=== PATIENT | male | born 1970 | race Caucasian/White ===

== ENCOUNTER 2020-08-08 13:27 | Inpatient (IN) | payer OTHER ==
[~2020-08-08] VITALS: Ht 177.8 cm; Wt 147.8 kg
[2020-08-08 17:05] LABS: BASO # 0.1 x10^3/uL (0.0-0.2); BASO % 1 % (0-3); EOS # 0.1 x10^3/uL (0.0-0.7); EOS % 2 % (0-3); HEMATOCRIT 47.2 % (39.0-53.0); LYMPH # 1.7 x10^3/uL (1.0-4.8); LYMPH % 19 % (24-48); MEAN CORPUSCULAR HEMOGLOBIN 28 pg (25-35); MEAN CORPUSCULAR HGB CONC 34 g/dL (31-37); MEAN CORPUSCULAR VOLUME 83 fL (79-100); MONO # 0.9 x10^3/uL (0.0-1.1); MONO % 10 % (0-9); NEUT # 6.2 x10^3/uL (1.8-7.7); NEUT % 68 % (31-73); PLATELET COUNT 196 x10^3/uL (140-400); RED CELL DISTRIBUTION WIDTH 13.4 % (11.5-14.5); WHITE BLOOD COUNT 9.1 x10^3/uL (4.0-11.0)
[2020-08-08] MEDS ORDERED: CONTRAST GIVEN. MC PRN (17:45)
[2020-08-08] MEDS ORDERED: IOHEXOL 350 MG/ML 100 ML VIAL. IV ONE (17:45)
[2020-08-08 17:50] LABS: CALCIUM 9.6 mg/dL (8.5-10.1); CREATININE 1.5 mg/dL (0.7-1.3); GFR 49.3; POTASSIUM 4.3 mmol/L (3.5-5.1)
[2020-08-08 17:56] LABS: ALBUMIN 3.5 g/dL (3.4-5.0); ALBUMIN/GLOBULIN RATIO 0.8 (1.0-1.7); TOTAL BILIRUBIN 0.5 mg/dL (0.2-1.0); TOTAL PROTEIN 7.9 g/dL (6.4-8.2)
[2020-08-08 18:12] LABS: PROTHROMBIN TIME PATIENT 13.5 SEC (11.7-14.0)
--- NOTE | 2020-08-08 18:23 | PHYS DOC ---
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 He states he had an outpatient venous Doppler done which was positive for DVT and was sent to the ED. Denies any chest pain or shortness of breath. Review of Systems: Review of Systems: Constitutional: Denies fever or chills. [] Eyes: Denies change in visual acuity. [] HENT: Denies nasal congestion or sore throat. [] Respiratory: Denies cough or shortness of breath. [] Cardiovascular: Denies chest pain or edema. [] GI: Denies abdominal pain, nausea, vomiting, bloody stools or diarrhea. [] : Denies dysuria. [] Musculoskeletal: Reports left lower extremity. Positive for DVT. Denies back pain or joint pain. [] Integument: Denies rash. [] Neurologic: Denies headache, focal weakness or sensory changes. [] Psychiatric: Denies depression or anxiety. [] Heart Score: Risk Factors: Risk Factors: DM, Current or recent (<one month) smoker, HTN, HLP, family history of CAD, obesity. Risk Scores: Score 0 - 3: 2.5% MACE over next 6 weeks - Discharge Home Score 4 - 6: 20.3% MACE over next 6 weeks - Admit for Clinical Observation Score 7 - 10: 72.7% MACE over next 6 weeks - Early Invasive Strategies Current Medications: Current Medications Medications (Trade) Dose Ordered Sig/Corie Start Time Stop Time Status Last Admin Dose Admin Info (CONTRAST GIVEN -- Rx MONITORING) 1 each PRN DAILY PRN 08/08/20 17:45 08/10/20 17:44 Iohexol (Omnipaque 350 Mg/ml) 100 ml 1X ONCE 08/08/20 17:45 08/08/20 17:46 DC 08/08/20 18:12 100 ML Allergies: Allergies: Allergies Coded Allergies Type Severity Reaction Last Updated Verified No Known Drug Allergies 08/08/20 No Physical Exam: PE: Constitutional: Well developed, well nourished, no acute distress, non-toxic appearance. [] HENT: Normocephalic, atraumatic, bilateral external ears normal, oropharynx moist, no oral exudates, nose normal. [] Eyes: PERRLA, EOMI, conjunctiva normal, no discharge. [] Neck: Normal range of motion, no tenderness, supple, no stridor. [] Cardiovascular:Heart rate regular rhythm, no murmur [] Lungs & Thorax: Bilateral breath sounds clear to auscultation [] Abdomen: Bowel sounds normal, soft, no tenderness, no masses, no pulsatile masses. [] Skin: Warm, dry, no erythema, no rash. [] Back: No tenderness, no CVA tenderness. [] Extremities: No tenderness, no cyanosis, no clubbing, ROM intact, no edema. Negative Homans' sign bilaterally, varicose veins noted bilaterally. Neurologic: Alert and oriented X 3, normal motor function, normal sensory function, no focal deficits noted. [] Psychologic: Affect normal, judgement normal, mood normal. [] Current Patient Data: Labs: Laboratory Tests Test 08/08/20 16:42 White Blood Count 9.1 x10^3/uL (4.0-11.0) Red Blood Count 5.70 x10^6/uL (4.30-5.70) Hemoglobin 16.0 g/dL (13.0-17.5) Hematocrit 47.2 % (39.0-53.0) Mean Corpuscular Volume 83 fL (79-100) Mean Corpuscular Hemoglobin 28 pg (25-35) Mean Corpuscular Hemoglobin Concent 34 g/dL (31-37) Red Cell Distribution Width 13.4 % (11.5-14.5) Platelet Count 196 x10^3/uL (140-400) Neutrophils (%) (Auto) 68 % (31-73) Lymphocytes (%) (Auto) 19 % (24-48) L Monocytes (%) (Auto) 10 % (0-9) H Eosinophils (%) (Auto) 2 % (0-3) Basophils (%) (Auto) 1 % (0-3) Neutrophils # (Auto) 6.2 x10^3/uL (1.8-7.7) Lymphocytes # (Auto) 1.7 x10^3/uL (1.0-4.8) Monocytes # (Auto) 0.9 x10^3/uL (0.0-1.1) Eosinophils # (Auto) 0.1 x10^3/uL (0.0-0.7) Basophils # (Auto) 0.1 x10^3/uL (0.0-0.2) Sodium Level 132 mmol/L (136-145) L Potassium Level 4.3 mmol/L (3.5-5.1) Chloride Level 92 mmol/L (98-107) L Carbon Dioxide Level 32 mmol/L (21-32) Anion Gap 8 (6-14) Blood Urea Nitrogen 24 mg/dL (8-26) Creatinine 1.5 mg/dL (0.7-1.3) H Estimated GFR (Cockcroft-Gault) 49.3 BUN/Creatinine Ratio 16 (6-20) Glucose Level 273 mg/dL (70-99) H Calcium Level 9.6 mg/dL (8.5-10.1) Total Bilirubin 0.5 mg/dL (0.2-1.0) Aspartate Amino Transferase (AST) 17 U/L (15-37) Alanine Aminotransferase (ALT) 26 U/L (16-63) Alkaline Phosphatase 120 U/L (46-116) H Total Protein 7.9 g/dL (6.4-8.2) Albumin 3.5 g/dL (3.4-5.0) Albumin/Globulin Ratio 0.8 (1.0-1.7) L Laboratory Tests 08/08/20 16:42 Laboratory Tests 08/08/20 16:42 Vital Signs: Vital Signs Date Time Temp Pulse Resp B/P (MAP) Pulse Ox O2 Delivery O2 Flow Rate FiO2 08/08/20 16:31 90 16 132/82 (99) 99 Room Air 08/08/20 14:40 98.0 98.0 EKG: EKG: [] Radiology/Procedures: Radiology/Procedures: []PROCEDURE: CT ANGIOGRAPHY CHEST CTA Chest with contrast: Clinical History: Reason: r/o PE. + LLE DVT / Spl. Instructions: IV OMNI 350 80 MLS / History: Shortness of breath. Axial helical images of the chest were obtained after the administration of 80 cc of IV Omni 350 and timed appropriately for a pulmonary arterial study. Conventional axial reconstruction was performed in addition to coronal, sagittal and bilateral oblique MIP (maximum intensity projection). This study was ordered to detect possible pulmonary embolism. There is a large filling defect in the distal right pulmonary artery interdigitating into all of the segmental and a few subsegmental branches. There is no solid saddle embolism. There are a few subsegmental pulmonary emboli seen on the left. The lungs and pleural margins are clear. There is no mediastinal or hilar lymphadenopathy. The thoracic aorta appears normal. Impression: Large right-sided pulmonary embolism and small left-sided pulmonary embolism. End impression PQRS Compliance Statement: One or more of the following individualized dose reduction techniques were utilized for this examination: 1. Automated exposure control 2. Adjustment of the mA and/or kV according to patient size 3. Use of iterative reconstruction technique Electronically signed by: Mary Jo Avalos III, MD (08/08/2020 6:20 PM) [facility] DICTATED and SIGNED BY: MARY JO AVALOS III, MD DATE: 08/08/201819 Course & Med Decision Making: Course & Med Decision Making Pertinent Labs and Imaging studies reviewed. (See chart for details) This is a 50-year-old male patient presenting to the ED today to be evaluated af ter being diagnosed with a DVT as an outpatient. Patient has had left lower extremity pain for 1 week Labs are negative for anything acute. CT angio of the chest was noted for bilateral PEs O2 sats 98% on room air Spoke with Dr. Porter who accepted patient for admission, he requested we give patient 15 mg of Xarelto. He also requested pulmonary consult which was done. Patient was admitted in stable condition Dragon Disclaimer: Dragon Disclaimer: This electronic medical record was generated, in whole or in part, using a voice recognition dictation system. Departure Departure Impression: Primary Impression: Bilateral pulmonary embolism Additional Impression: Left leg DVT Qualified Codes: I82.492 - Acute embolism and thrombosis of other specified deep vein of left lower extremity Disposition: ADMITTED INPT THIS HOSP Condition: STABLE Referrals: RAY PORTER MD (PCP) MAYLIN MORALES APRN Aug 08, 2020 18:23
[2020-08-08] MEDS ORDERED: RIVAROXABAN 15 MG TABLET. PO STA (18:51)
[2020-08-08] MEDS ORDERED: MORPHINE SULFATE 4 MG/ML VIAL. IV PRN (19:00)
[2020-08-08] MEDS ORDERED: ONDANSETRON PF 4 MG/2 ML VIAL. IV PRN (19:00)
[2020-08-08] MEDS ORDERED: ACETAMINOPHEN 325 MG TABLET. PO PRN (19:00)
[2020-08-08 23:39] VITALS: BP 126/78
[2020-08-09] MEDS ORDERED: METF10007 PO (00:08)
[2020-08-09] MEDS ORDERED: INSU100C4 SQ ×3 (00:08)
[2020-08-09] MEDS ORDERED: MELO7.5T29 PO (00:08)
[2020-08-09] MEDS ORDERED: LISI1TAB37 PO (00:08)
[2020-08-09] MEDS ORDERED: ATOR20TA58 PO (00:08)
[2020-08-09] MEDS ORDERED: INSU100V37 SQ (00:08)
[2020-08-09] MEDS ORDERED: EMPA25TA PO (00:08)
--- NOTE | 2020-08-09 02:30 | NUR ---
The patient, ELIZA PORTER, 50 y/o, M admitted by HUBER PORTER MD, was given written information regarding hospital policies, unit procedures and contact persons. Valuables were checked and patient has wedding ring as well as a watch. RN left message for Dr Huber Porter regarding admission.
[2020-08-09 03:05] VITALS: BP 93/50
[2020-08-09 05:01] LABS: BASO # 0.1 x10^3/uL (0.0-0.2); BASO % 1 % (0-3); EOS # 0.2 x10^3/uL (0.0-0.7); EOS % 3 % (0-3); HEMATOCRIT 44.5 % (39.0-53.0); HEMOGLOBIN 15.1 g/dL (13.0-17.5); LYMPH % 22 % (24-48); MEAN CORPUSCULAR HEMOGLOBIN 28 pg (25-35); MEAN CORPUSCULAR HGB CONC 34 g/dL (31-37); MEAN CORPUSCULAR VOLUME 84 fL (79-100); MONO # 0.9 x10^3/uL (0.0-1.1); MONO % 10 % (0-9); NEUT % 65 % (31-73); PLATELET COUNT 186 x10^3/uL (140-400); RED CELL DISTRIBUTION WIDTH 13.4 % (11.5-14.5); WHITE BLOOD COUNT 9.2 x10^3/uL (4.0-11.0)
[2020-08-09 05:29] LABS: ALBUMIN 3.1 g/dL (3.4-5.0); ALBUMIN/GLOBULIN RATIO 0.8 (1.0-1.7); CALCIUM 9.5 mg/dL (8.5-10.1); CREATININE 1.4 mg/dL (0.7-1.3); GFR 53.4; TOTAL BILIRUBIN 0.8 mg/dL (0.2-1.0); TOTAL PROTEIN 7.2 g/dL (6.4-8.2)
[2020-08-09 07:00] VITALS: BP 107/64
[2020-08-09] MEDS ORDERED: INSULIN GLARGINE SYRINGE. SQ SCH (08:00)
--- NOTE | 2020-08-09 08:34 | PDOC ---
Provider Note Date of Service: DATE: 08/09/20 TIME: 08:33 Provider Note dictated Justifications for Admission Other Justification RAY PORTER MD Aug 09, 2020 08:34
[2020-08-09] MEDS ORDERED: hydroCHLOROthiazide 12.5 MG CAPSULE PO SCH (09:00)
[2020-08-09] MEDS ORDERED: INSULIN LISPRO 300 UNITS/3 ML VIAL. SQ SCH ×3 (09:00→17:00)
[2020-08-09] MEDS ORDERED: RIVAROXABAN 15 MG TABLET. PO SCH (09:00)
[2020-08-09] MEDS ORDERED: metFORMIN 500 MG TABLET PO SCH (09:00)
[2020-08-09] MEDS ORDERED: LISINOPRIL 20 MG TABLET PO SCH (09:00)
--- NOTE | 2020-08-09 09:07 | HP ---
ADMIT DATE: CHIEF COMPLAINT: Painful left thigh. HISTORY OF PRESENT ILLNESS: A 50-year-old white male known insulin-dependent diabetic with hypertension was seen in the office 4 or 5 days ago with some left lower thigh pain. This progressed to around and behind his knee and outpatient Doppler showed evidence of DVT in the left leg. He was sent to the ER for further evaluation and despite having no chest pain or shortness of breath. CTA revealed bilateral pulmonary emboli, right side greater than left. He was admitted on Xarelto and is feeling better at this time. He can recall no trauma to the leg or any recent prolonged immobilization or risk factors for DVT. He has never had known thrombotic event. PAST MEDICAL HISTORY: Diabetes. MEDICATIONS: Meds managed by his white shoe examiner. He also takes atorvastatin and lisinopril. ALLERGIES: No known allergies. A1c most recently was above 8. 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 FAMILY HISTORY: Unremarkable. REVIEW OF SYSTEMS: Unremarkable. PHYSICAL EXAMINATION: ENT: All within normal limits. NECK: No masses, nodes or bruits. LUNGS: Clear, without tachypnea or rubs. CARDIOVASCULAR: Regular rate. No tachycardia or murmur. ABDOMEN: Soft, benign and nontender. EXTREMITIES: Mildly tender to palpation on the left medial thigh with fullness with no masses or fluctuance present. There is no edema of the left leg and bilateral pedal pulses are unremarkable. NEUROLOGIC: Physiologic and nonfocal. ASSESSMENT: Deep venous thrombosis of the left thigh with bilateral pulmonary emboli that is asymptomatic. PLAN: Continue Xarelto while we evaluate his outpatient drug availability. RAY PORTER MD DR: DARRION/bárbara JOB#: [id number] / [id number]
--- NOTE | 2020-08-09 09:48 | NUR ---
Non administered AM dose of Metformin d\t patient having CT scan with contrast on 08/08/2020. Hold Metformin for 48 hours
[2020-08-09 11:00] VITALS: BP 108/64
--- NOTE | 2020-08-09 11:30 | NUR ---
SS following for discharge planning. SS reviewed pt chart and discussed with pt RN. Pt is currently on room air. SS contacted pt pharmacy to check on jaeger of Xarelto. Approximate cost is $90 per month with insurance. SS assisted in enrolling pt in patient assistance program for Xarelto. Information provided to pt RN. Discharge plan is to home when medically ready. SS will continue to follow for discharge planning.
[2020-08-09] MEDS ORDERED: RIVA15TA PO (15:11)
--- NOTE | 2020-08-09 15:42 | NUR ---
Discharge Note: ELIZA PORTER Discharge instructions and discharge home medications reviewed with Home Care Nurse/Telephone and a copy given. All questions have been answered and understanding verbalized. The following instructions and handouts were given: discharge medication instructions , follow up instructions, Xarelto education Discontinued lines and drains: peripheral IV discontinued, dressing clean, dry and intact. Patient discharged to home with spouse via ambulation
--- NOTE | 2020-08-09 15:49 | PDOC ---
PULMONARY PROGRESS NOTES DATE: 08/09/20 TIME: 15:48 Vitals Vital Signs Date Time Temp Pulse Resp B/P (MAP) Pulse Ox O2 Delivery O2 Flow Rate FiO2 08/09/20 11:00 98.0 78 20 108/64 (79) 97 Nasal Cannula 2.0 98.0 Labs Laboratory Tests Test 08/08/20 16:42 08/08/20 17:35 08/09/20 04:05 08/09/20 07:25 White Blood Count 9.1 x10^3/uL (4.0-11.0) 9.2 x10^3/uL (4.0-11.0) Red Blood Count 5.70 x10^6/uL (4.30-5.70) 5.30 x10^6/uL (4.30-5.70) Hemoglobin 16.0 g/dL (13.0-17.5) 15.1 g/dL (13.0-17.5) Hematocrit 47.2 % (39.0-53.0) 44.5 % (39.0-53.0) Mean Corpuscular Volume 83 fL (79-100) 84 fL (79-100) Mean Corpuscular Hemoglobin 28 pg (25-35) 28 pg (25-35) Mean Corpuscular Hemoglobin Concent 34 g/dL (31-37) 34 g/dL (31-37) Red Cell Distribution Width 13.4 % (11.5-14.5) 13.4 % (11.5-14.5) Platelet Count 196 x10^3/uL (140-400) 186 x10^3/uL (140-400) Neutrophils (%) (Auto) 68 % (31-73) 65 % (31-73) Lymphocytes (%) (Auto) 19 % (24-48) 22 % (24-48) Monocytes (%) (Auto) 10 % (0-9) 10 % (0-9) Eosinophils (%) (Auto) 2 % (0-3) 3 % (0-3) Basophils (%) (Auto) 1 % (0-3) 1 % (0-3) Neutrophils # (Auto) 6.2 x10^3/uL (1.8-7.7) 6.0 x10^3/uL (1.8-7.7) Lymphocytes # (Auto) 1.7 x10^3/uL (1.0-4.8) 2.0 x10^3/uL (1.0-4.8) Monocytes # (Auto) 0.9 x10^3/uL (0.0-1.1) 0.9 x10^3/uL (0.0-1.1) Eosinophils # (Auto) 0.1 x10^3/uL (0.0-0.7) 0.2 x10^3/uL (0.0-0.7) Basophils # (Auto) 0.1 x10^3/uL (0.0-0.2) 0.1 x10^3/uL (0.0-0.2) Sodium Level 132 mmol/L (136-145) 136 mmol/L (136-145) Potassium Level 4.3 mmol/L (3.5-5.1) 4.0 mmol/L (3.5-5.1) Chloride Level 92 mmol/L (98-107) 97 mmol/L (98-107) Carbon Dioxide Level 32 mmol/L (21-32) 29 mmol/L (21-32) Anion Gap 8 (6-14) 10 (6-14) Blood Urea Nitrogen 24 mg/dL (8-26) 23 mg/dL (8-26) Creatinine 1.5 mg/dL (0.7-1.3) 1.4 mg/dL (0.7-1.3) Estimated GFR (Cockcroft-Gault) 49.3 53.4 BUN/Creatinine Ratio 16 (6-20) 16 (6-20) Glucose Level 273 mg/dL (70-99) 158 mg/dL (70-99) Calcium Level 9.6 mg/dL (8.5-10.1) 9.5 mg/dL (8.5-10.1) Total Bilirubin 0.5 mg/dL (0.2-1.0) 0.8 mg/dL (0.2-1.0) Aspartate Amino Transf (AST/SGOT) 17 U/L (15-37) 16 U/L (15-37) Alanine Aminotransferase (ALT/SGPT) 26 U/L (16-63) 25 U/L (16-63) Alkaline Phosphatase 120 U/L (46-116) 98 U/L (46-116) Total Protein 7.9 g/dL (6.4-8.2) 7.2 g/dL (6.4-8.2) Albumin 3.5 g/dL (3.4-5.0) 3.1 g/dL (3.4-5.0) Albumin/Globulin Ratio 0.8 (1.0-1.7) 0.8 (1.0-1.7) Prothrombin Time 13.5 SEC (11.7-14.0) Prothromb Time International Ratio 1.1 (0.8-1.1) Activated Partial Thromboplast Time 24 SEC (24-38) Glucose (Fingerstick) 184 mg/dL (70-99) Laboratory Tests Test 08/08/20 16:42 08/08/20 17:35 08/09/20 04:05 08/09/20 07:25 White Blood Count 9.1 x10^3/uL (4.0-11.0) 9.2 x10^3/uL (4.0-11.0) Red Blood Count 5.70 x10^6/uL (4.30-5.70) 5.30 x10^6/uL (4.30-5.70) Hemoglobin 16.0 g/dL (13.0-17.5) 15.1 g/dL (13.0-17.5) Hematocrit 47.2 % (39.0-53.0) 44.5 % (39.0-53.0) Mean Corpuscular Volume 83 fL (79-100) 84 fL (79-100) Mean Corpuscular Hemoglobin 28 pg (25-35) 28 pg (25-35) Mean Corpuscular Hemoglobin Concent 34 g/dL (31-37) 34 g/dL (31-37) Red Cell Distribution Width 13.4 % (11.5-14.5) 13.4 % (11.5-14.5) Platelet Count 196 x10^3/uL (140-400) 186 x10^3/uL (140-400) Neutrophils (%) (Auto) 68 % (31-73) 65 % (31-73) Lymphocytes (%) (Auto) 19 % (24-48) 22 % (24-48) Monocytes (%) (Auto) 10 % (0-9) 10 % (0-9) Eosinophils (%) (Auto) 2 % (0-3) 3 % (0-3) Basophils (%) (Auto) 1 % (0-3) 1 % (0-3) Neutrophils # (Auto) 6.2 x10^3/uL (1.8-7.7) 6.0 x10^3/uL (1.8-7.7) Lymphocytes # (Auto) 1.7 x10^3/uL (1.0-4.8) 2.0 x10^3/uL (1.0-4.8) Monocytes # (Auto) 0.9 x10^3/uL (0.0-1.1) 0.9 x10^3/uL (0.0-1.1) Eosinophils # (Auto) 0.1 x10^3/uL (0.0-0.7) 0.2 x10^3/uL (0.0-0.7) Basophils # (Auto) 0.1 x10^3/uL (0.0-0.2) 0.1 x10^3/uL (0.0-0.2) Sodium Level 132 mmol/L (136-145) 136 mmol/L (136-145) Potassium Level 4.3 mmol/L (3.5-5.1) 4.0 mmol/L (3.5-5.1) Chloride Level 92 mmol/L (98-107) 97 mmol/L (98-107) Carbon Dioxide Level 32 mmol/L (21-32) 29 mmol/L (21-32) Anion Gap 8 (6-14) 10 (6-14) Blood Urea Nitrogen 24 mg/dL (8-26) 23 mg/dL (8-26) Creatinine 1.5 mg/dL (0.7-1.3) 1.4 mg/dL (0.7-1.3) Estimated GFR (Cockcroft-Gault) 49.3 53.4 BUN/Creatinine Ratio 16 (6-20) 16 (6-20) Glucose Level 273 mg/dL (70-99) 158 mg/dL (70-99) Calcium Level 9.6 mg/dL (8.5-10.1) 9.5 mg/dL (8.5-10.1) Total Bilirubin 0.5 mg/dL (0.2-1.0) 0.8 mg/dL (0.2-1.0) Aspartate Amino Transf (AST/SGOT) 17 U/L (15-37) 16 U/L (15-37) Alanine Aminotransferase (ALT/SGPT) 26 U/L (16-63) 25 U/L (16-63) Alkaline Phosphatase 120 U/L (46-116) 98 U/L (46-116) Total Protein 7.9 g/dL (6.4-8.2) 7.2 g/dL (6.4-8.2) Albumin 3.5 g/dL (3.4-5.0) 3.1 g/dL (3.4-5.0) Albumin/Globulin Ratio 0.8 (1.0-1.7) 0.8 (1.0-1.7) Prothrombin Time 13.5 SEC (11.7-14.0) Prothromb Time International Ratio 1.1 (0.8-1.1) Activated Partial Thromboplast Time 24 SEC (24-38) Glucose (Fingerstick) 184 mg/dL (70-99) Medications Active Scripts Medications Dose Route/Sig Max Daily Dose Days Date Category Dose Instructions Xarelto (Rivaroxaban) 15 Mg Tablet 15 Mg PO BIDAC 08/09/20 Reported Metformin Hcl 1,000 Mg Tablet 1,000 Mg PO BIDWMEALS 08/09/20 Reported Hold for 48 hours. May resume taking on July Atorvastatin Calcium 20 Mg Tablet 20 Mg PO HS 08/09/20 Reported Novolog (Insulin Aspart) 100 Unit/1 Ml Cartridge 55 Unit SQ DAILYWSUP 08/09/20 Reported Novolog (Insulin Aspart) 100 Unit/1 Ml Cartridge 40 Unit SQ DAILYWLUN 08/09/20 Reported Novolog (Insulin Aspart) 100 Unit/1 Ml Cartridge 45 Unit SQ DAILYWBKFT 08/09/20 Reported Meloxicam 7.5 Mg Tablet 2 Tab PO DAILY 30 08/09/20 Reported Jardiance (Empagliflozin) 25 Mg Tablet 25 Mg PO DAILY08 08/09/20 Reported Tresiba (Insulin Degludec) 100 Unit/1 Ml Vial 140 Unit SQ DAILY08 08/09/20 Reported Lisinopril-Hctz 20-12.5 Mg Tab (Lisinopril/Hydrochlorothiazide) 1 Each Tablet 1 Tab PO DAILY 08/09/20 Reported Impression . 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 DYLAN HANEY MD Aug 09, 2020 15:49
--- NOTE | 2020-08-09 16:23 | CONS ---
DATE OF CONSULTATION: 08/09/2020 ATTENDING PHYSICIAN: Dr. Huber Sharma. REASON FOR CONSULTATION: The patient is seen in pulmonary consultation at the request of Dr. Sharma for acute pulmonary embolism. HISTORY OF PRESENT ILLNESS: The patient is a 50-year-old that was seen in Dr. Sharma's office on Saturday with some atypical muscle cramps, mostly of the left upper thigh. The patient was evaluated and sent home. He subsequently had some more discomfort mainly behind the knee. He underwent an outpatient venous Doppler, which was positive for DVT. He was subsequently sent to the Emergency Department and had an evaluation, part of his evaluation included a CT angiogram. CT angiogram confirmed a large right-sided pulmonary emboli and small left-sided pulmonary emboli. Throughout all this, the patient was symptomatic only with left lower extremity pain, mostly the thigh. He did experience one time shortness of air. That was associated severely with left thigh pain. Never had any syncopal or near syncopal episodes. 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 He is pretty active. He has never had any difficulty with a DVT or pulmonary embolism in the past. There is no family history of thrombophilia. He does not have a history of cancer. He has not had his screening colonoscopy. PAST MEDICAL HISTORY: Remarkable for diabetes. CURRENT MEDICATIONS: List was reviewed. He is currently on atorvastatin, lisinopril, and diabetic medication. ALLERGIES: No known drug allergies. 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 FAMILY HISTORY: No family history of thrombophilia. REVIEW OF SYSTEMS: CONSTITUTIONAL: No fever or chills. EYES: No change in visual acuity. HENT: No nasal congestion or sore throat. PULMONARY: As indicated above. Sleep hygiene reveals that the patient snores, he awakens unrefreshed from his sleep and does experience some excessive daytime sleepiness. He was also noted to have desaturation during sleep here at the hospital. CARDIOVASCULAR: No chest pain. No pressure. GASTROINTESTINAL: No nausea, vomiting, diarrhea. GENITOURINARY: No dysuria or frequency. MUSCULOSKELETAL: No localized muscle aches or joint pain. SKIN: No new skin rashes. NEUROLOGIC: No headaches, diplopia or blurred vision. PHYSICAL EXAMINATION: GENERAL: Morbid obese individual in no respiratory distress. BMI of 46. HEENT: Eyes, the sclerae were nonicteric. NECK: Jugular venous distention was not elevated. No lymphadenopathy. CHEST: Full expansion. LUNGS: Adequate flow with no wheezes. CARDIOVASCULAR: Regular rate and rhythm with S1, S2, no S3. ABDOMEN: Soft, nontender, nondistended. EXTREMITIES: No clubbing or cyanosis. No pitting edema. No Homans sign. NEUROLOGICAL: The patient was awake, alert, following commands. A detailed neuro exam was not performed. LABORATORY DATA: Reviewed. White count was normal. Hemoglobin and hematocrit were noted. IMPRESSION: 1. Acute pulmonary embolism. 2. Left-sided deep venous thrombosis. 3. Morbid obesity. 4. Diabetes. 5. Obstructive sleep apnea. PLAN: 1. Okay to discharge home on Xarelto. 2. Repeat CT angiogram in 6 weeks. 3. Outpatient polysomnogram. 4. 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 He is at risk for fall at work, subsequently a complication with hemorrhage from his anticoagulation. I do appreciate the privilege in sharing in the patient's care. DYLAN HANEY MD DR: DINA/bárbara JOB#: [id number] / [id number]
--- NOTE | 2020-08-09 19:11 | DS ---
DATE OF DISCHARGE: 08/09/2020 HOSPITAL SUMMARY: A 50-year-old white male, known diabetic, hypertensive, who came in with left leg pain and a possible positive venous Doppler ultrasound for DVT of the left thigh. He also was found by CT scan through the ER, to have bilateral pulmonary emboli on the left side, smaller than the right side. Laboratory studies were unremarkable. Plain chest x-ray was clear and physical exam was unremarkable as well. He was started on Xarelto with good tolerance and once prescription was sent and insurance cleared the coverage, he was able to be discharged and followed as an outpatient. FINAL DIAGNOSES: 1. Acute bilateral pulmonary emboli. 2. Acute deep venous thrombosis, left leg. OPERATIONS, PROCEDURES, COMPLICATIONS, CONSULTATIONS: None. DISPOSITION: Xarelto 15 mg twice a day for 21 days, then 20 mg daily. He will be treated for a period of 6 months and then reevaluate as he has never had an embolic phenomenon before and had no predisposing condition for this that he is aware of. Office followup in 1-2 weeks. Rest of home meds remain the same. RAY PORTER MD DR: DARRION/bárbara JOB#: [id number] / [id number]
[2020-08-09] MEDS ORDERED: ATORVASTATIN CALCIUM 20 MG TABLET PO SCH (21:00)
[2020-08-10] MEDS ORDERED: INSULIN GLARGINE SYRINGE. SQ SCH (08:00)
[2020-08-10] MEDS ORDERED: NON FORMULARY ITEM (Empagliflozin (Jardiance) 25 MG) PO SCH (08:00)
== END 2020-08-09 15:50 | disposition home or self-care (01) | DRG 299 ==
LOC: ER 13:27 → 2 NORTH 18:50
PROVIDERS: ADMIT Family Medicine; ATTEND Family Medicine
DX: I82.4Y2 Acute embolism and thrombosis of unspecified deep veins of left proximal lower extremity (principal); I26.99 Other pulmonary embolism without acute cor pulmonale; Z68.42 Body mass index [BMI] 45.0-49.9, adult; E10.9 Type 1 diabetes mellitus without complications; E66.01 Morbid (severe) obesity due to excess calories; G47.33 Obstructive sleep apnea (adult) (pediatric); I10 Essential (primary) hypertension; Z79.4 Long term (current) use of insulin
CPT/HCPCS: 36415; 71275; 80053; 82962; 85025; 85610; 85730; J1815; J2270; Q9967; G0378

== ENCOUNTER → 2020-08-08 | Outpatient (CLI) | payer OTHER ==
[~2020-08-08] MED LIST: ATOR20TA58 PO; EMPA25TA PO; INSU100C4 SQ; INSU100V37 SQ; LISI1TAB37 PO; MELO7.5T29 PO; METF10007 PO; RIVA15TA PO
--- NOTE | 2020-08-08 13:13 | RAD ---
EXAMINATION: VENOUS LOWER EXTREMITY LEFT HISTORY: Leg pain. Diabetic mononeuropathy. COMPARISON/CORRELATION: None FINDINGS: Left lower extremity duplex venous ultrasound exam was performed. Grayscale, color Doppler, and spectral Doppler imaging was performed. Compression and augmentation was performed. Partially occlusive left common femoral venous thrombus is present. Occlusive thrombus is evident following the superficial femoral vein, popliteal vein, and posterior tibial vein. Greater saphenous vein junction is patent. Right common femoral vein is patent. IMPRESSION: Extensive thrombus involvement of the left lower extremity venous system. Referring provider's office contacted by the cytometry technologist on 08/08/2020 at 1:10 PM. Electronically signed by: Josiah Trujillo MD (08/08/2020 1:09 PM) [id number]
== END ==
LOC: US 12:30
PROVIDERS: ATTEND Physician Assistant
DX: M79.605 Pain in left leg (principal); M25.562 Pain in left knee; M62.838 Other muscle spasm; M79.652 Pain in left thigh; E11.41 Type 2 diabetes mellitus with diabetic mononeuropathy
CPT/HCPCS: 93971

== ENCOUNTER → 2020-08-31 | Outpatient (CLI) | payer OTHER ==
[2020-08-09 11:00] VITALS: BP 108/64
--- NOTE | 2020-09-03 17:59 | SLEEP ---
DATE OF STUDY: 08/31/2020 HOME SLEEP STUDY REFERRING PHYSICIAN: Dylan Harding MD The patient is 50 years old who weighs 350 pounds. The patient's BMI is 50. [place] score of 10. The patient underwent home sleep study performed at [facility]. Total recording time was 518 minutes. During the night study, the patient had 93 obstructive apneas, 1 central apnea, 4 mixed apneas and 120 hypopneas. The patient's AHI was 29.4 per hour. Nocturnal oximetry study revealed average oxygen saturation of 93% with lowest of 60%. A 56 minutes were spent with oxygen saturation of less than 90% and another 25 minutes with a saturation less than 85%. IMPRESSION: 1. Severe obstructive sleep apnea at an AHI of 29.4 per hour. 2. Nocturnal hypoxia secondary to obstructive sleep apnea. RECOMMENDATIONS: 1. The patient would benefit from in-lab CPAP titration study. 2. Once the patient is optimally treated, then follow up in 4-6 weeks to assess compliance with CPAP and to document clinical improvement. 3. Weight loss is strongly advised. 4. Avoid CARP[employer] PACKING depressants. 5. Cautioned regarding driving until symptoms of sleep apnea resolve with the use of CPAP. DARVIN JONAS MD DR: GISELLE/bárbara JOB#: [id number] / [id number] DYLAN Ashby MD
== END ==
LOC: RT 08:54
PROVIDERS: ATTEND Internal Medicine Pulmonary Disease
DX: G47.33 Obstructive sleep apnea (adult) (pediatric) (principal); G47.36 Sleep related hypoventilation in conditions classified elsewhere
CPT/HCPCS: G0399

== ENCOUNTER → 2020-09-12 | Outpatient (CLI) | payer OTHER ==
--- NOTE | 2020-09-13 10:49 | SLEEP ---
DATE OF STUDY: 09/12/2020 SLEEP STUDY ATTENDING PHYSICIAN: Ray Sharma MD REFERRING PHYSICIAN: Lidia Harding MD Patient is a 50-year-old who weighs 350 pounds with a BMI of 50. The patient has history of severe obstructive sleep apnea diagnosed by home sleep study. AHI was 29.4 per hour. The patient was referred for in-lab CPAP titration study. During the night study, the patient spent 406 minutes in bed and slept for 307 minutes with a sleep efficiency of 76%. Sleep latency was 73 minutes with a REM latency of 200 minutes. Sleep architecture showed normal stage 1 sleep, increased stage 2 sleep, normal slow wave and reduced REM sleep. EKG monitoring revealed an average heart rate of 83 beats per minute, no sustained arrhythmias observed. PLMS were seen at index of 70 per hour and 5 per hour caused EEG arousals. The patient was started on CPAP at 5 cm water and titrated up to 18 cm water. At the final pressure, the patient slept for 60 minutes. The patient had supine as well as REM sleep. The patient's AHI was reduced to 0 per hour and oxygen saturation remained above 88%. IMPRESSION: 1. Severe obstructive sleep apnea diagnosed by home sleep study. 2. Severe PLMS. 3. Nocturnal hypoxia secondary to obstructive sleep apnea, but resolved with CPAP. RECOMMENDATIONS: 1. CPAP at 18 cm water completely eliminated the patient's sleep apnea and should be used on a nightly basis. 2. Follow up in 4-6 weeks to assess compliance with CPAP and to document clinical improvement. 3. Weight loss is strongly advised. 4. Avoid [employer] depressants. 5. Caution regarding driving until symptoms of sleep apnea resolves with the use of CPAP. 6. The patient should also be further evaluated for symptoms of restless legs during the day. DARVIN JONAS MD DR: GISELLE/bárbara JOB#: [id number] / [id number] RAY Connelly MD, SABATO MD
== END ==
LOC: RT 18:50
PROVIDERS: ATTEND Internal Medicine Pulmonary Disease
DX: G47.33 Obstructive sleep apnea (adult) (pediatric) (principal); G47.34 Idiopathic sleep related nonobstructive alveolar hypoventilation; G47.61 Periodic limb movement disorder
CPT/HCPCS: 95811

== ENCOUNTER → 2020-09-19 | Outpatient (CLI) | payer OTHER ==
[~2020-09-19] MED LIST changes: +CONTRAST GIVEN. MC PRN; +IOHEXOL 350 MG/ML 100 ML VIAL. IV ONE
[2020-09-19 09:09] LABS: CREATININE 1.1 mg/dL (0.7-1.3); GFR 70.6
--- NOTE | 2020-09-19 10:53 | RAD ---
CT ANGIOGRAPHY CHEST INDICATION: CHEST PAIN. H/O PE Comparison: 08/08/2020. TECHNIQUE: Following the uneventful administration of intravenous contrast, 90 cc Omnipaque 350, axial CT sections were obtained through the lungs and upper abdomen. Multiplanar reconstructions and MIP images were obtained. PQRS compliance statement: One or more of the following individualized dose reduction techniques were utilized for this examination: 1. Automated exposure control 2. Adjustment of the mA and/or kV according to patient size 3. Use of iterative reconstruction technique FINDINGS: Pulmonary arteries: Minimal residual eccentric linear filling defects in the right lower lobe interlobar pulmonary artery and lower lobe segmental branches. No new large pulmonary thromboembolic disease. Lungs and Airways: No pulmonary mass or consolidation. No abnormality of the central airways. Pleura: The pleural spaces are normal. Heart and Mediastinum: The visualized thyroid is normal in size and attenuation. No axillary or supraclavicular lymphadenopathy. No mediastinal, hilar or retrocrural lymphadenopathy. Normal cardiac size. No pericardial effusion. Coronary artery atherosclerotic disease. Normal caliber thoracic aorta. Abdomen: Limited images through the upper abdomen show no abnormality of the visualized organs. Bones and Soft Tissues: Degenerative changes of the spine. IMPRESSION: 1. 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 No new large pulmonary thromboembolus. 2. No pulmonary mass or consolidation. 3. Coronary artery atherosclerotic disease. Electronically signed by: Radhames Culver MD (09/19/2020 10:50 AM) [id number]
== END ==
LOC: CT 12:25
PROVIDERS: ATTEND Internal Medicine Pulmonary Disease
DX: I27.82 Chronic pulmonary embolism (principal); I25.10 Atherosclerotic heart disease of native coronary artery without angina pectoris
CPT/HCPCS: 36415; 71275; 82565; 84520; Q9967